=== PATIENT | male | born 1950 | race Two or more races ===

== ENCOUNTER 2018-03-18 07:11 | Emergency (ER) | payer MEDICAID ==
[~2018-03-18] VITALS: Ht 175.3 cm; Wt 77.1 kg
--- NOTE | 2018-03-18 07:15 | NUR ---
BBRA 60 FROM TRAIN STATIONl: CP SINCE THIS AM, 1 NITRO GIVEN, 162 ASA GIVEN. REFUSED 2ND NITRO. A/OX 3. BREATHING EVEN AND UNLABORED. NO SOB, NAD, VITALS STABLE. SAFETY AND COMFORT MEASURES IN PLACE. AWAITING MD ORDERS.
--- NOTE | 2018-03-18 07:30 | NUR ---
NEW IV STARTED ON RFA, 20G. BLOOD DRAWN AND SENT TO LAB.
[2018-03-18 07:43] LABS: BASOPHILS % (AUTO) 0.4 % (0.0-2.0); HEMATOCRIT 34 % (39-51); LYMPHOCYTES # (AUTO) 1.4 /CMM (0.8-4.8); LYMPHOCYTES % (AUTO) 31.3 % (20.0-44.0); MEAN CORPUSCULAR HGB CONC 33 g/dl (31.0-36.0); MEAN CORPUSCULAR VOLUME 93 fL (80-96); MONOCYTES # (AUTO) 0.5 /CMM (0.1-1.30); MONOCYTES % (AUTO) 10.1 % (2.0-12.0); NEUTROPHILS # (AUTO) 2.6 /CMM (1.8-8.9); NEUTROPHILS % (AUTO) 56.2 % (43.0-81.0); PLATELET COUNT (AUTO) 238 /CMM (150-450); RDW COEFFICIENT OF VARIATION 16.3 (11.5-15.0); RED BLOOD CELL COUNT(AUTO) 3.61 MIL/uL (4.5-6.0); WHITE BLOOD COUNT (AUTO) 4.6 K/uL (4.3-11.0)
--- NOTE | 2018-03-18 07:50 | NUR ---
PHONE COUNSELOR AT BEDSIDE.
[2018-03-18 07:53] LABS: CALCIUM, SERUM 9.5 mg/dL (8.5-10.1); CARBON DIOXIDE 29 mmol/L (21-32); CHLORIDE 103 mmol/L (98-107); CREATININE 1.3 mg/dL (0.6-1.3); GLUCOSE 287 mg/dL (74-106); POTASSIUM 4.7 mmol/L (3.5-5.1); SODIUM SERUM 137 mmol/L (136-145); UREA NITROGEN, BLOOD 18 mg/dL (7-18)
[2018-03-18 08:00] LABS: TROPONIN I < 0.017 ng/mL (0.00-0.056)
[2018-03-18 08:01] LABS: INR 1.01 (0.87-1.13)
[2018-03-18 09:24] VITALS: BP 142/84
--- NOTE | 2018-03-18 09:25 | NUR ---
IV removed. Catheter intact and site benign. Pressure and 4x4 applied to site. No bleeding noted. Patient discharged to home in stable condition. Written and verbal after care instructions given. Patient verbalizes understanding of instruction.
== END 2018-03-18 09:24 | disposition home or self-care (01) ==
LOC: ER 07:13
DX: R07.89 Other chest pain (principal); I11.0 Hypertensive heart disease with heart failure; I50.9 Heart failure, unspecified; E11.9 Type 2 diabetes mellitus without complications; F20.9 Schizophrenia, unspecified; F31.9 Bipolar disorder, unspecified; F17.200 Nicotine dependence, unspecified, uncomplicated; Z60.2 Problems related to living alone; Z88.8 Allergy status to other drugs, medicaments and biological substances
CPT/HCPCS: 36415; 71045; 80048; 84484; 85025; 85730; 93005; 99285; A4606; Z7610

== ENCOUNTER 2018-03-18 12:51 | Emergency (ER) | payer SELFPAY ==
[~2018-03-18] VITALS: Ht 185.4 cm; Wt 79.4 kg
--- NOTE | 2018-03-18 13:00 | NUR ---
[id number]: PSYCHE EVAL. NAD NOTED, VSS, RESP EVEN AND UNLABORED, PT WAS PUT ON MONITOR, WAITING FOR MD SHELDON.
[2018-03-18 15:41] LABS: ACETAMINOPHEN 0 ug/ml (10-30); ALCOHOL, BLOOD < 3 mg/dL (0-0); SALICYLATE 1.2 mg/dL (2.8-20.0)
--- NOTE | 2018-03-18 16:46 | NUR ---
urine collected sent to lab
[2018-03-18 17:07] LABS: APPEARANCE,URINE CLEAR (CLEAR); BILIRUBIN,URINE NEGATIVE (NEGATIVE); BLOOD, URINE NEGATIVE Ery/uL (NEGATIVE); COLOR,URINE YELLOW (YELLOW); KETONES,URINE NEGATIVE (NEGATIVE); LEUKOCYTE ESTERASE ,URINE NEGATIVE (NEGATIVE); NITRITE, URINE NEGATIVE (NEGATIVE); PROTEIN,URINE NEGATIVE (NEGATIVE); UGLUCOSE 3+ mg/dL (NEGATIVE); UROBILINOGEN,URINE 0.2 EU/dL (0.2)
--- NOTE | 2018-03-18 17:09 | NUR ---
called kitchen for meal tray
[2018-03-18 17:41] LABS: RBC,URINE 0-2 /HPF (0-2); WBC,URINE 0-2 /HPF (0-3)
[2018-03-18 17:42] LABS: BACTERIA,URINE None seen /HPF (None Seen); SQUAMOUS EPITHELIAL CELL,UR Rare /HPF (None Seen)
[2018-03-18 18:50] VITALS: BP 123/78
--- NOTE | 2018-03-18 18:50 | NUR ---
Patient given written and verbal discharge instructions. Patient verbalizes understanding of instructions. Patient is ambulatory with steady gait. Refuses offer of retirement placement. Patient given list of available shelters in surrounding area.
== END 2018-03-18 20:37 | disposition home or self-care (01) ==
LOC: ER 12:53
DX: F32.9 Major depressive disorder, single episode, unspecified (principal); I11.0 Hypertensive heart disease with heart failure; I50.9 Heart failure, unspecified; F20.9 Schizophrenia, unspecified; F17.200 Nicotine dependence, unspecified, uncomplicated; Z88.8 Allergy status to other drugs, medicaments and biological substances; Z60.2 Problems related to living alone
CPT/HCPCS: 36415; 80305; 80329; 81001; 99284; A4606; G0480 ×2; Z7610; 81000-TC

== ENCOUNTER 2018-05-10 03:26 | Emergency (ER) | payer MEDICAID, MEDICARE ==
[~2018-05-10] VITALS: Ht 188 cm; Wt 79.8 kg
--- NOTE | 2018-05-10 04:58 | NUR ---
BIBRA 60 FROM BUS STOP C/O "NON RADIATING SHARP HEART ATTACK". PT STATES SUICIDAL THOUGHT WITHOUT A PLAN. -HI. + AUDITORY HALLUCINATIONS. PT IS AAOX4. SKIN WNL. RESP EVEN AND UNLABORED. NO S/S OF ACUTE DISTRESS NOTED. SI PRECAUTIONS IN PLACE. PT PLACED ON MANAGER INPATIENT AND POX. PT SAFETY AND COMFORT MEASURES IN PLACE. AWAITING MD FOR EVAL.
--- NOTE | 2018-05-10 05:38 | NUR ---
CIRCULAR KNIFE CUTTER MACHINE BEDSIDE FOR BLOOD DRAW. URINE SPECIMEN COLLECTED BY CIRCULAR KNIFE CUTTER MACHINE.
[2018-05-10 05:52] LABS: HEMATOCRIT 40 % (39-51); LYMPHOCYTES # (AUTO) 0.9 /CMM (0.8-4.8); LYMPHOCYTES % (AUTO) 22.4 % (20.0-44.0); MEAN CORPUSCULAR HEMOGLOBIN 30 PG (26.0-33.0); MEAN CORPUSCULAR HGB CONC 33 g/dl (31.0-36.0); MEAN CORPUSCULAR VOLUME 93 fL (80-96); MONOCYTES # (AUTO) 0.4 /CMM (0.1-1.30); MONOCYTES % (AUTO) 9.4 % (2.0-12.0); NEUTROPHILS # (AUTO) 2.8 /CMM (1.8-8.9); NEUTROPHILS % (AUTO) 66.2 % (43.0-81.0); PLATELET COUNT (AUTO) 218 /CMM (150-450); RDW COEFFICIENT OF VARIATION 16.4 (11.5-15.0); RED BLOOD CELL COUNT(AUTO) 4.28 MIL/uL (4.5-6.0); WHITE BLOOD COUNT (AUTO) 4.2 K/uL (4.3-11.0)
[2018-05-10 06:03] LABS: APPEARANCE,URINE CLEAR (CLEAR); BILIRUBIN,URINE NEGATIVE (NEGATIVE); BLOOD, URINE NEGATIVE Ery/uL (NEGATIVE); COLOR,URINE YELLOW (YELLOW); KETONES,URINE NEGATIVE (NEGATIVE); LEUKOCYTE ESTERASE ,URINE NEGATIVE (NEGATIVE); NITRITE, URINE NEGATIVE (NEGATIVE); PROTEIN,URINE NEGATIVE (NEGATIVE); UGLUCOSE 3+ mg/dL (NEGATIVE); UROBILINOGEN,URINE 0.2 EU/dL (0.2)
[2018-05-10 06:11] LABS: CALCIUM, SERUM 9.1 mg/dL (8.5-10.1); CARBON DIOXIDE 29 mmol/L (21-32); CHLORIDE 101 mmol/L (98-107); CREATININE 1.1 mg/dL (0.6-1.3); GLUCOSE 255 mg/dL (74-106); POTASSIUM 3.7 mmol/L (3.5-5.1); SODIUM SERUM 132 mmol/L (136-145); UREA NITROGEN, BLOOD 15 mg/dL (7-18)
[2018-05-10 06:21] LABS: ALANINE AMINOTRANSFERASE 25 U/L (12-78); ALBUMIN 3.4 g/dL (3.4-5.0); ALCOHOL, BLOOD < 3 mg/dL (0-0); ALKALINE PHOSPHATASE 100 U/L (46-116); ASPARTATE AMINOTRANSFERASE 16 U/L (15-37); BILIRUBIN,DIRECT 0.2 mg/dL (0.0-0.2); BILIRUBIN,TOTAL 0.7 mg/dL (0.2-1.0); TOTAL PROTEIN, SERUM 7.4 g/dL (6.4-8.2)
[2018-05-10 06:22] LABS: BACTERIA,URINE None seen /HPF (None Seen); RBC,URINE NONE SEEN /HPF (0-2); SQUAMOUS EPITHELIAL CELL,UR Rare /HPF (None Seen); WBC,URINE NONE SEEN /HPF (0-3)
[2018-05-10 06:26] LABS: ACETAMINOPHEN 0 ug/ml (10-30); SALICYLATE 0.9 mg/dL (2.8-20.0)
--- NOTE | 2018-05-10 07:01 | NUR ---
Patient discharged to home in stable condition. Written and verbal after care instructions given. Patient verbalizes understanding of instruction. NO S/S OF DISTRESS UPON DISCHARGE. PT BEING BELIGERENT TOWARDS STAFF AND YELLING. HOSPITAL SECURITY CALLED TO ESCORT PT OUT OF ED.
[2018-05-10 07:02] VITALS: BP 132/85
== END 2018-05-10 07:04 | disposition home or self-care (01) ==
LOC: ER 03:28
DX: R07.9 Chest pain, unspecified (principal); I50.9 Heart failure, unspecified; I11.0 Hypertensive heart disease with heart failure; E11.9 Type 2 diabetes mellitus without complications; F31.9 Bipolar disorder, unspecified; F20.9 Schizophrenia, unspecified; F17.200 Nicotine dependence, unspecified, uncomplicated; Z88.0 Allergy status to penicillin; Z88.8 Allergy status to other drugs, medicaments and biological substances; Z60.2 Problems related to living alone
CPT/HCPCS: 36415; 80048-TC; 80076-TC; 80305; 81000-TC; 84484-TC; 85025-TC; A4606; G0480; Z7610

== ENCOUNTER 2018-05-10 14:31 | Inpatient (IN) | payer MEDICARE, MEDICAID ==
[~2018-05-10] VITALS: Ht 188 cm; Wt 80.7 kg
[2018-05-10] MEDS ORDERED: LORAZEPAM INJ 2 MG/ML VIAL ONE (14:59)
[2018-05-10] MEDS ORDERED: LORAZEPAM INJ 2 MG/ML VIAL IM ONE (15:00)
[2018-05-10] MEDS ORDERED: HALOPERIDOL LACTATE INJ 5 MG/ML VIAL IM ONE (15:00)
--- NOTE | 2018-05-10 15:10 | NUR ---
pt rec'd to er in cuffs from [facility] 5[address] touching himself . vss iv [id number] rt ac labs drawn sen t to lab ekg done AWAITING EVALUATION BY ER PROVIDER.
--- NOTE | 2018-05-10 15:20 | NUR ---
iv ativan 2 mg ivp given per md order vss
--- NOTE | 2018-05-10 16:00 | NUR ---
PT ATE MORE RELAX NOT YELLING RESTING CALMLY.
--- NOTE | 2018-05-10 16:01 | NUR ---
RRFUSED TO GIVE UA AT THIS THIME GIVEN POS WATER AND COFFEE, CALLED REPORT TO JULIO ON SCH FLOOR 211B PT STABLE FOR TRANSFER
--- NOTE | 2018-05-10 16:04 | NUR ---
LINDY HELD PER
[2018-05-10] MEDS ORDERED: MAG HYDROX/AL HYDROX/SIMETH 30 ML UDC PO PRN (17:00)
[2018-05-10] MEDS ORDERED: clonazePAM 0.5 MG TABLET PO PRN (17:00)
[2018-05-10] MEDS ORDERED: ACETAMINOPHEN 325 MG TABLET PO PRN (17:00)
[2018-05-10] MEDS ORDERED: MAGNESIUM HYDROXIDE 30 ML UDC PO PRN (17:00)
--- NOTE | 2018-05-10 17:00 | NUR ---
GPS/RN PATIENT ADMITTED ON A 5150 HOLD FOR DTS UNDER THE CARE OF DR PERSAUD AND HOLLY GUERRERO. BOTH DR'S MADE AWARE OF NEW ADMISSION, LEFT MESSAGE WITH [employer], AWAITING CALL BACK FROM HOLLY GUERRERO. NO HOME MEDICATIONS. PER HOLD PATIENT WAS MASTURBATING IN PUBLIC AND WAS VOICING SI WITH PLAN TO OVERDOSE ON PILLS. UPON FACE TO FACE ASSESSMENT PATIENT IS ALERT AND ORIENTED X 3, STABLE CONDITION, VERBALLY RESPONSIVE, MALODOROUS, ANXIOUS, RESTLESS, LABILE AND HYPERSEXUAL.PATIENT DENIES SI/HI/AVH. BELONGINGS, VALUABLES AND CONTRABAND COLLECTED. WILL CONTINUE TO MONITOR Q 15 MIN FOR SAFETY AND BEHAVIOR.
[2018-05-10 19:41] VITALS: BP 143/77
[2018-05-10 19:42] LABS: BASOPHILS # (AUTO) 0.1 /CMM (0.0-0.2); BASOPHILS % (AUTO) 1.4 % (0.0-2.0); EOSINOPHILS % (AUTO) 1.7 % (0.0-6.0); HEMATOCRIT 41 % (39-51); HEMOGLOBIN 13.4 g/dL (13.5-17.5); LYMPHOCYTES # (AUTO) 1.1 /CMM (0.8-4.8); LYMPHOCYTES % (AUTO) 25.8 % (20.0-44.0); MEAN CORPUSCULAR HEMOGLOBIN 30 PG (26.0-33.0); MEAN CORPUSCULAR HGB CONC 33 g/dl (31.0-36.0); MEAN CORPUSCULAR VOLUME 91 fL (80-96); MONOCYTES # (AUTO) 0.4 /CMM (0.1-1.30); MONOCYTES % (AUTO) 9.1 % (2.0-12.0); NEUTROPHILS # (AUTO) 2.7 /CMM (1.8-8.9); PLATELET COUNT (AUTO) 308 /CMM (150-450); RDW COEFFICIENT OF VARIATION 15.2 (11.5-15.0); RED BLOOD CELL COUNT(AUTO) 4.49 MIL/uL (4.5-6.0); WHITE BLOOD COUNT (AUTO) 4.4 K/uL (4.3-11.0)
[2018-05-10 20:11] LABS: THYROID STIMULATING HORMONE 2.107 uIU/mL (0.358-3.74)
[2018-05-10 20:12] LABS: BILIRUBIN,TOTAL 0.6 mg/dL (0.2-1.0); CALCIUM, SERUM 9.3 mg/dL (8.5-10.1); CREATININE 1.3 mg/dL (0.6-1.3); PHOSPHORUS 4.2 mg/dL (2.5-4.9)
[2018-05-10 20:13] LABS: ALBUMIN 3.7 g/dL (3.4-5.0); MAGNESIUM 1.7 mg/dL (1.8-2.4)
[2018-05-11] MEDS: TEMAZEPAM 7.5 MG CAPSULE PO PRN ×2 (02:31→21:24)
[2018-05-11 08:00] VITALS: BP 133/72
[2018-05-11] MEDS: NICOTINE PATCH (14MG) 14 MG PATCH.TD24 TD SCH (09:20)
[2018-05-11] MEDS: clonazePAM 1 MG TABLET PO PRN (09:46)
--- NOTE | 2018-05-11 09:46 | NUR ---
[id number]: GAVE KLONOPIN 1 MG PO DUE TO SEVERE ANXIETY UPON PT REQUEST AND WILL CONTINUE TO MONITOR FOR EFFECTIVENESS OF MEDICATION.
[2018-05-11] MEDS ORDERED: clonazePAM 1 MG TABLET PO PRN (10:00)
--- NOTE | 2018-05-11 11:00 | NUR ---
GPS-N-NOTES: NOTIFIED CAT BREEDER AMEE ABOUT LAB RESULTS ON 05/10/18: WBC= 4.49, HGB= 13.4, RDW COEFF OF KEIRA= 15.2, MAGNESIUM= 1.7. NO NEW ORDERS GIVEN AT THIS TIME.
[2018-05-11] MEDS: OLANZAPINE 5 MG/TAB.RAPDIS PO SCH (11:15)
[2018-05-11] MEDS: DIVALPROEX SODIUM 125 MG CAP.SPRINK PO SCH ×2 (11:16→21:23)
[2018-05-11] MEDS ORDERED: DEXTROSE 50%-WATER 50 ML DISP.SYRIN IV PRN (11:30)
[2018-05-11] MEDS: BLOOD SUGAR DIAGNOSTIC 1 EACH STRIP IN SCH ×4 (12:11→21:36)
[2018-05-11] MEDS: INSULIN REGULAR, HUMAN 100 UNIT/ML 3 ML VIAL SQ PRN ×2 (12:13→21:30)
--- NOTE | 2018-05-11 12:13 | NUR ---
[id number]: BLOOD SUGAR IS 238 MG/DL AND GAVE 4 UNITS OF REGULAR INSULIN
[2018-05-11 16:00] VITALS: BP 146/90
--- NOTE | 2018-05-11 17:12 | NUR ---
[id number]: PT REFUSED BLOOD SUGAR AT THIS TIME
[2018-05-11 20:46] VITALS: BP 123/69
[2018-05-12] MEDS: BLOOD SUGAR DIAGNOSTIC 1 EACH STRIP IN SCH ×4 (07:49→21:26)
[2018-05-12] MEDS: clonazePAM 1 MG TABLET PO PRN ×2 (07:58→19:28)
--- NOTE | 2018-05-12 07:58 | NUR ---
[id number]: GAVE KLONOPIN 1 MG PO DUE TO INCREASED ANXIETY UPON PT REQUEST AND WILL CONTINUE TO MONITOR FOR EFFECTIVENESS OF MEDICATION
[2018-05-12] MEDS: DIVALPROEX SODIUM 125 MG CAP.SPRINK PO SCH ×2 (07:59→21:26)
[2018-05-12] MEDS: OLANZAPINE 5 MG/TAB.RAPDIS PO SCH (07:59)
[2018-05-12] MEDS: NICOTINE PATCH (14MG) 14 MG PATCH.TD24 TD SCH (07:59)
[2018-05-12 08:00] VITALS: BP 112/64
[2018-05-12] MEDS: INSULIN REGULAR, HUMAN 100 UNIT/ML 3 ML VIAL SQ PRN ×2 (08:00→16:44)
--- NOTE | 2018-05-12 08:00 | NUR ---
[id number]-KR-[id number]: BLOOD SUGAR IS 316 MG/DL AND GAVE 8 UNITS OF REGULAR INSULIN
--- NOTE | 2018-05-12 11:10 | NUR ---
[id number]-[id number]: BLOOD SUGAR IS 96 MG/DL AND NO INSULIN REQUIRED AT THIS TIME
[2018-05-12 12:45] LABS: APPEARANCE,URINE CLEAR (CLEAR); BILIRUBIN,URINE NEGATIVE (NEGATIVE); BLOOD, URINE NEGATIVE Ery/uL (NEGATIVE); COLOR,URINE YELLOW (YELLOW); KETONES,URINE NEGATIVE (NEGATIVE); LEUKOCYTE ESTERASE ,URINE NEGATIVE (NEGATIVE); NITRITE, URINE NEGATIVE (NEGATIVE); PH,URINE 6.5 (5.0-8.0); PROTEIN,URINE NEGATIVE (NEGATIVE); UGLUCOSE 1+ mg/dL (NEGATIVE); UROBILINOGEN,URINE 0.2 EU/dL (0.2)
[2018-05-12 13:04] LABS: BACTERIA,URINE None seen /HPF (None Seen); RBC,URINE 0-2 /HPF (0-2); SQUAMOUS EPITHELIAL CELL,UR Rare /HPF (None Seen); WBC,URINE 0-2 /HPF (0-3)
[2018-05-12 16:00] VITALS: BP 127/66
--- NOTE | 2018-05-12 16:44 | NUR ---
IZH-VB-VDECL: BLOOD SUGAR IS 317 MG/DL AND GAVE 8 UNITS OF REGULAR INSULIN
--- NOTE | 2018-05-12 16:44 | NUR ---
[id number]: BLOOD SUGAR IS 317 MG/DL AND GAVE 8 UNITS OF REGULAR INSULIN
--- NOTE | 2018-05-12 17:28 | NUR ---
[id number]: GAVE MILK OF MAGNESIA 30 ML PO DUE TO CONSTIPATION UPON PT REQUEST AND WILL CONTINUE TO MONITOR FOR EFFECTIVENESS OF MEDICATION
[2018-05-12 20:06] VITALS: BP 162/95
[2018-05-12] MEDS: TEMAZEPAM 7.5 MG CAPSULE PO PRN (22:53)
[2018-05-12 23:00] VITALS: BP 139/65
[2018-05-13] MEDS: clonazePAM 1 MG TABLET PO PRN ×4 (03:10→20:56)
[2018-05-13] MEDS: BLOOD SUGAR DIAGNOSTIC 1 EACH STRIP IN SCH ×4 (07:30→21:43)
[2018-05-13 08:00] VITALS: BP 101/56
[2018-05-13] MEDS: DIVALPROEX SODIUM 125 MG CAP.SPRINK PO SCH ×3 (09:32→16:52)
[2018-05-13] MEDS: NICOTINE PATCH (14MG) 14 MG PATCH.TD24 TD SCH (09:33)
[2018-05-13] MEDS: OLANZAPINE 5 MG/TAB.RAPDIS PO SCH (09:33)
[2018-05-13] MEDS: INSULIN REGULAR, HUMAN 100 UNIT/ML 3 ML VIAL SQ PRN ×3 (12:06→21:45)
--- NOTE | 2018-05-13 14:15 | NUR ---
MICHAEL called the pt's brother, Domingo Soriano ([phone]), and talked about the pt's current state and the initial discharge plan. The brother stated that he believes he should remain in the hospital longer.
--- NOTE | 2018-05-13 14:15 | NUR ---
Initial Discharge Plan: Pt stated that he lives at [address] [place] [address] but it has not been verified by anyone. Per pt's brother, he has no idea where the pt lives. Per the pt, he would like to return home upon his discharge. SW will work with the pt and the MD regarding appropriate discharge planning. SW will form a safe and proper discharge.
[2018-05-13 16:00] VITALS: BP 110/58
[2018-05-13 20:02] VITALS: BP 147/88
[2018-05-13] MEDS: TEMAZEPAM 7.5 MG CAPSULE PO PRN (23:21)
[2018-05-14] MEDS: BLOOD SUGAR DIAGNOSTIC 1 EACH STRIP IN SCH ×4 (07:48→21:53)
[2018-05-14 08:00] VITALS: BP 128/78
[2018-05-14] MEDS: DIVALPROEX SODIUM 125 MG CAP.SPRINK PO SCH ×3 (08:38→17:26)
[2018-05-14] MEDS: NICOTINE PATCH (14MG) 14 MG PATCH.TD24 TD SCH ×2 (08:38→09:00)
[2018-05-14] MEDS: OLANZAPINE 5 MG/TAB.RAPDIS PO SCH (08:38)
[2018-05-14] MEDS: clonazePAM 1 MG TABLET PO PRN (08:46)
[2018-05-14] MEDS: INSULIN REGULAR, HUMAN 100 UNIT/ML 3 ML VIAL SQ PRN ×4 (08:50→21:54)
--- NOTE | 2018-05-14 08:50 | NUR ---
GPS/RN-NOTES NOTED PATIENT HYPERVERBAL WITH LOUD VOICE EASILY ANGRY BEHAVIOR, KLONOPIN 1MG P.O GIVEN PRN ORDER. WILL CONT. ON 1:1 MONITORING FOR SAFETY AND BEHAVIOR.
--- NOTE | 2018-05-14 09:50 | NUR ---
GPS/RN-NOTES PATIENT IN THE DAY ROOM ,CALM,NO ACUTE DISTRESS NOTED.
--- NOTE | 2018-05-14 12:05 | NUR ---
GPS/RN-NOTES PATIENT BLOOD SUGAR WAS 364MG /DL, 10 UNITS OF R INSULIN GIVEN ORDERED.
--- NOTE | 2018-05-14 14:57 | NUR ---
MICHAEL called [facility] ([phone]) to verify that the pt was provided with housing and left a message on [employer]'s voicemail.
--- NOTE | 2018-05-14 15:10 | NUR ---
Dr. Armendariz and the SW spoke to the pt and he agreed to be placed in a fdc if [facility] does not set up housing for him.
[2018-05-14 16:00] VITALS: BP 126/69
[2018-05-14 20:00] VITALS: BP 124/71
[2018-05-14 20:15] VITALS: BP 124/71
[2018-05-14] MEDS: TEMAZEPAM 7.5 MG CAPSULE PO PRN (21:52)
[2018-05-15 08:00] VITALS: BP 140/86
[2018-05-15] MEDS: BLOOD SUGAR DIAGNOSTIC 1 EACH STRIP IN SCH ×4 (08:15→20:41)
[2018-05-15] MEDS: DIVALPROEX SODIUM 125 MG CAP.SPRINK PO SCH ×3 (08:20→17:00)
[2018-05-15] MEDS: clonazePAM 1 MG TABLET PO PRN ×2 (08:21→20:40)
[2018-05-15] MEDS: NICOTINE PATCH (14MG) 14 MG PATCH.TD24 TD SCH (08:21)
[2018-05-15] MEDS: INSULIN REGULAR, HUMAN 100 UNIT/ML 3 ML VIAL SQ PRN ×3 (08:31→20:43)
[2018-05-15] MEDS ORDERED: OLANZAPINE 5 MG/TAB.RAPDIS PO SCH (09:00)
--- NOTE | 2018-05-15 14:17 | NUR ---
MICHAEL faxed a referral to [facility] to the fax number: [phone].
--- NOTE | 2018-05-15 14:17 | NUR ---
MICHAEL faxed a referral to [facility] to the fax number: [phone].
--- NOTE | 2018-05-15 14:34 | NUR ---
Pt. is highly agitated, aggressive, screaming, yelling and threatening the staff. Notified Dr. Armendariz and ordered Zyprexa 5 mg IM x1 and Ativan 1 mg IM x1.
[2018-05-15] MEDS ORDERED: LORAZEPAM INJ 2 MG/ML VIAL IM ONE (15:00)
[2018-05-15] MEDS ORDERED: OLANZAPINE 10 MG VIAL IM ONE ×2 (15:00)
[2018-05-15 16:00] VITALS: BP 133/69
[2018-05-15] MEDS: OLANZAPINE 5 MG/TAB.RAPDIS PO SCH (17:00)
--- NOTE | 2018-05-15 18:00 | NUR ---
RN NOTES PATIENT SLEEPING AT THIS TIME, UNABLE TO ADMINISTER SCHEDULED MEDICATION, AND TAKE BLOOD GLUCOSE LEVEL. 1:1 SITTER NEXT TO THE BED. FOR SAFETY.
[2018-05-15 20:00] VITALS: BP 152/73
--- NOTE | 2018-05-15 21:24 | NUR ---
GPS RN NOTE: PATIENT WROTE A LETTER FOR THE SITTER OF SEXUAL INTENTION. REDIRECT THE PATIENT. LIMIT SETTINGS DONE. CLOSE MONITORING DONE. CN NOTIFIED. WILL CONTINUE TO MONITOR [id number] FOR SAFETY
--- NOTE | 2018-05-16 03:30 | NUR ---
GPS RN NOTE: HEARD SOUND CAME FROM ROOM, IMMEDIATELY RUSHED TO THE ROOM OF THE PATIENT AND SEEN THE PATIENT SITTING ON THE FLOOR. PATIENT STOOD UP, AFTER FEW STEPS, HE OUT HIS BALANCE AND LANDED ON THE BED. C/O MILD PAIN ON HIS LEFT HUMERUS. PATIENT STATED THAT HE FRACTURED HIS LEFT HUMERUS 10 WEEKS AGO PRIOR TO ADMISSION TO [facility] AND HE CAN NOT MOVE IT. HEAD TO TOE ASSESSMENT DONE. NO REDNESS, NO SWELLING OR DISCOLORATION NOTED AT THIS TIME. AND ALSO PATIENT NOTED WITH SMALL BUMP ON HIS LEFT FOREHEAD. NO OPEN SKIN. FIRST AID DONE. ICE PACK APPLIED. IMMOBILIZE THE LEFT ARM. TYLENOL 650 MG GIVEN FOR MILD PAIN. NEURO CHECK DONE. PERRLA. NO APPARENT INJURY NOTED AT THIS TIME. EXTREMITIES ABLE TO MOVE FREELY WITHOUT ANY S/S OF PAIN AND DISCOMFORT. OBSERVED PATIENT AND PATIENT CAN STILL MOVE HIS LEFT ARM WITH NO FACIAL GRIMACING OR ANY S/S OF PAIN AND DISCOMFORT. ABLE TO ASSIST THE PATIENT BACK TO BED WITH 1 PERSON ASSIST. CN AWARE. NOTIFIED WAREHOUSE SORTER MARSHAL CALVIN WITH ORDER XRAY ORDER GIVEN NOTED AND CARRIED OUT. WILL CONTINUE TO MONITOR Addendum: 05/16/18 at 0706 by JULI KOHLI II, RN PER PATIENT, HE STOOD UP, AFTER FEW STEPS, HE OUT HIS BALANCE AND LANDED ON THE BED.
--- NOTE | 2018-05-16 03:50 | NUR ---
GPS RN NOTE: RN SCIENTIFIC PROCESS OPERATOR NOTIFIED BY THE CHARGE NURSE REGARDING THE INCIDENT
--- NOTE | 2018-05-16 04:00 | NUR ---
GPS RN NOTE: PATIENT CALM, COOPERATIVE, NO S/S OF PAIN AND DISCOMFORT, X RAY DONE AND PATIENT COOPERATED. WILL CONTINUE TO MONITOR
--- NOTE | 2018-05-16 05:20 | NUR ---
GPS RN NOTE: RESULT OF XRAY RELAYED TO HOLLY CALVIN. PER MARIXA IT SOUND LIKE AN OLD FRACTURE AND JUST PLACE A SLING NOTED AND CARRIED OUT.
--- NOTE | 2018-05-16 06:15 | NUR ---
GPS RN NOTE: PATIENT WOKE UP, ALERT AND ORIENTED X 3, CALM, COOPERATIVE, NO AGITATION AT THIS TIME. SLING APPLIED AND COOPERATED. ON 1:1 FOR SAFETY. WILL CONTINUE TO MONITOR [id number] FOR SAFETY
[2018-05-16] MEDS: BLOOD SUGAR DIAGNOSTIC 1 EACH STRIP IN SCH ×4 (07:30→20:42)
--- NOTE | 2018-05-16 07:55 | NUR ---
rn notes pt in the activity room having breakfast. alert and oriented; no c/o pain made. left arm sling in place; skin and circulation wnl. sitter on standby. safety ensured. rohith monitor
[2018-05-16 08:00] VITALS: BP 139/77
--- NOTE | 2018-05-16 08:09 | NUR ---
DR. OH MADE AWARE OF THE INCIDENT.
[2018-05-16] MEDS: OLANZAPINE 5 MG/TAB.RAPDIS PO SCH ×2 (08:53→17:18)
[2018-05-16] MEDS: NICOTINE PATCH (14MG) 14 MG PATCH.TD24 TD SCH (08:53)
[2018-05-16] MEDS: DIVALPROEX SODIUM 125 MG CAP.SPRINK PO SCH ×2 (08:53→17:18)
[2018-05-16] MEDS: INSULIN REGULAR, HUMAN 100 UNIT/ML 3 ML VIAL SQ PRN ×4 (09:00→20:43)
[2018-05-16] MEDS: METFORMIN 500 MG TABLET PO SCH ×2 (11:34→17:18)
[2018-05-16] MEDS: clonazePAM 1 MG TABLET PO PRN (11:34)
[2018-05-16 16:00] VITALS: BP 116/71
[2018-05-16 20:00] VITALS: BP 142/97
--- NOTE | 2018-05-16 20:44 | NUR ---
GPS RN NOTE: PATIENT REQUESTED TO HAVE BLOOD SUGAR CHECKED NOW BECAUSE HE WANTS TO EAT. EXPLAINED THE RISK AND BENEFITS BUT PATIENT INSISTED. BLOOD SUGAR = 224, ORDERED SLIDING SCALE GIVEN ORDERED. WILL CONTINUE TO MONITOR [id number] FOR SAFETY
[2018-05-16] MEDS: TEMAZEPAM 7.5 MG CAPSULE PO PRN (22:01)
[2018-05-17] MEDS: BLOOD SUGAR DIAGNOSTIC 1 EACH STRIP IN SCH ×4 (07:40→22:11)
[2018-05-17] MEDS: INSULIN REGULAR, HUMAN 100 UNIT/ML 3 ML VIAL SQ PRN ×4 (07:42→22:29)
--- NOTE | 2018-05-17 07:59 | NUR ---
GPS/RN PT REFUSED BLOOD DRAW OFFERED X3
[2018-05-17 08:00] VITALS: BP 130/90
[2018-05-17] MEDS: NICOTINE PATCH (14MG) 14 MG PATCH.TD24 TD SCH ×2 (09:00→09:18)
[2018-05-17] MEDS: METFORMIN 500 MG TABLET PO SCH ×2 (09:18→17:39)
[2018-05-17] MEDS: OLANZAPINE 5 MG/TAB.RAPDIS PO SCH ×2 (09:18→17:39)
[2018-05-17] MEDS: DIVALPROEX SODIUM 125 MG CAP.SPRINK PO SCH ×2 (09:18→17:39)
[2018-05-17] MEDS: clonazePAM 1 MG TABLET PO PRN (09:18)
--- NOTE | 2018-05-17 10:19 | NUR ---
PT REFUSED LAB DRAW
[2018-05-17 16:00] VITALS: BP 126/88
--- NOTE | 2018-05-17 19:20 | NUR ---
GPS RN OPENING NOTE RECEIVED PATIENT SITTING IN THE DINNING ROOM, QUIET 2 THIS TIME. NO ACUTE CHANGES, NO C/O PAIN, NO SOB NOTED. ON 1:1 SITTER OBSERVATION FOR SAFETY. WILL CONTINUE TO MONITOR CLOSELY FOR SAFETY & COMFORT.
[2018-05-17 19:56] VITALS: BP 115/63
[2018-05-17 20:00] VITALS: BP 115/68
--- NOTE | 2018-05-17 20:03 | NUR ---
GPS RN NOTE: PATIENT REQUESTED TO HAVE BLOOD SUGAR CHECKED NOW BECAUSE HE WANTS TO EAT. EXPLAINED THE RISK AND BENEFITS BUT PATIENT INSISTED. BLOOD SUGAR = 186MG/DL, LAST INSULIN DOSE WAS GIVE @ 1647. WILL RECHECK AGAIN SCHEDULED @ 2200. CONTINUING TO MONITOR ON 1:1 SITTER OBSERVATION FOR SAFETY
--- NOTE | 2018-05-17 21:00 | NUR ---
SEEN BY DR OVALLE PATIENT SEEN BY DR. OVALLE WITH NO NEW ORDER AT THIS TIME. PT IS ON 1:1 OBSERVATION, SITTING IN THE DINNING ROOM EATING HIS SNACK.
--- NOTE | 2018-05-17 22:29 | NUR ---
PRN INSULIN GIVEN PT'S BLOOD SUGAR WAS CHECKED & NOTED TO BE 236MG/DL. PRN INSULIN 4 UNITS GIVEN ORDERED PER ISS PROTOCOL. CONTINUING TO MONITOR CLOSELY.
[2018-05-17] MEDS: TEMAZEPAM 7.5 MG CAPSULE PO PRN (23:07)
--- NOTE | 2018-05-17 23:07 | NUR ---
PRN RESTORIL GIVEN PT IS IN HIS BED, WRITING ON A PAPER, ASKED TO GET HIS SLEEPING PILL. PRN RESTORIL GIVEN. WILL REASSESS FOR EFFECTIVENESS ACCORDINGLY.
--- NOTE | 2018-05-18 06:30 | NUR ---
GPS RN CLOSING NOTES PT NOTED TO BE SLEEPING @ THIS TIME, SLEPT INTERMITTENTLY @ NIGHT. HAD SNACKS & FLUIDS TOLERATED. NO ANALI NOTED. NOTED TO BE CONFUSED, NEEDS CONSTANT REORIENTATION. PT DENIED SUICIDAL IDEATIONS AT NIGHT. ALL NEEDS MET. HAD SHOWER X 1 @ NIGHT. BED IN LOW LOCKED POSITION. ON 1:1 OBSERVATION. SAFETY MEASURES IN PLACE. WILL ENDORSE TO AM RN FOR CONTINUITY OF CARE.
[2018-05-18 08:00] VITALS: BP 145/85
--- NOTE | 2018-05-18 08:00 | NUR ---
GPS/RN BS 258, 6 UNITS REGULAR INSULIN ADMINISTERED.WILL CONTINUE TO MONITOR.
[2018-05-18] MEDS: INSULIN REGULAR, HUMAN 100 UNIT/ML 3 ML VIAL SQ PRN ×3 (08:30→22:20)
[2018-05-18] MEDS: DIVALPROEX SODIUM 125 MG CAP.SPRINK PO SCH ×2 (08:32→17:10)
[2018-05-18] MEDS: OLANZAPINE 5 MG/TAB.RAPDIS PO SCH (08:32)
[2018-05-18] MEDS: clonazePAM 1 MG TABLET PO PRN (08:32)
[2018-05-18] MEDS: NICOTINE PATCH (14MG) 14 MG PATCH.TD24 TD SCH (08:32)
[2018-05-18] MEDS: METFORMIN 500 MG TABLET PO SCH ×2 (08:32→17:10)
--- NOTE | 2018-05-18 08:32 | NUR ---
GPS/RN PATIENT IS ANXIOUS, AGITATED, SCREAMING ST STAFF AND BEING VERBALLY AGGRESSIVE. ADMINISTERED KLONOPIN 1MG, WILL CONTINUE TO MONITOR.
[2018-05-18] MEDS: BLOOD SUGAR DIAGNOSTIC 1 EACH STRIP IN SCH ×4 (09:05→21:58)
--- NOTE | 2018-05-18 11:06 | NUR ---
Jase ([phone]) from [facility] arrived at the facility to assess the pt and stated that he is cleared to be discharged to the facility.
--- NOTE | 2018-05-18 11:09 | NUR ---
SW called [facility] ([phone]) and asked to be redirected to the admissions department where she had to leave a voicemail regarding the referral that was sent on Friday.
--- NOTE | 2018-05-18 11:35 | NUR ---
SW called [facility] ([phone]) and Jes from Admissions stated that the pt was not accepted due his psych needs.
--- NOTE | 2018-05-18 12:30 | NUR ---
GPS/RN BS 151 ,2 UNITS REGULAR INSULIN ADMINISTERED.WILL CONTINUE TO MONITOR.
[2018-05-18 16:00] VITALS: BP 137/95
--- NOTE | 2018-05-18 18:34 | NUR ---
GPS/RN PATIENT REUSED BS CHECK X 3, EXPLAINED RISKS AND BENEFITS. WILL CONTINUE TO ENCOURAGE TO COMPLY WITH MD REGIMEN
[2018-05-18 20:56] VITALS: BP 139/69
[2018-05-18] MEDS: TEMAZEPAM 7.5 MG CAPSULE PO PRN (22:47)
[2018-05-19 08:00] VITALS: BP 132/62
[2018-05-19] MEDS: INSULIN REGULAR, HUMAN 100 UNIT/ML 3 ML VIAL SQ PRN (08:36)
[2018-05-19] MEDS: DIVALPROEX SODIUM 125 MG CAP.SPRINK PO SCH (08:37)
[2018-05-19] MEDS: METFORMIN 500 MG TABLET PO SCH (08:37)
[2018-05-19] MEDS: NICOTINE PATCH (14MG) 14 MG PATCH.TD24 TD SCH (08:37)
[2018-05-19] MEDS: clonazePAM 1 MG TABLET PO PRN (08:37)
[2018-05-19] MEDS: BLOOD SUGAR DIAGNOSTIC 1 EACH STRIP IN SCH (08:38)
[2018-05-19] MEDS ORDERED: OLANZAPINE 5 MG/TAB.RAPDIS PO SCH (09:00)
--- NOTE | 2018-05-19 09:21 | NUR ---
MICHAEL called the pt's brother, Domingo Soriano ([phone]), and informed him that the pt is going to a facility called [facility].
--- NOTE | 2018-05-19 13:00 | NUR ---
GPS/RN PATIENT CLEARED FOR DISCHARGE TO [facility] BY DR PERSAUD AND SPRING UPHOLSTERER CESAR. MEDICATIONS RECONCILED BY BOTH DR'S EXIT CARE, MEDICATIONS AND AFTER CARE PLAN EXPLAINED TO PATIENT, VERBALIZED UNDERSTANDING. BELONGINGS AND VALUABLES RETURNED, PATIENT DENIES SI/HI/AVH, PSYCHIATRIC TREATMENT PLANS MET. REPORT CALLED TO ROSALBA AT FACILITY, SKIN INTACT, LEFT UNIT CALM, COOPERATIVE, NO DISTRESS NOTED,STABLE CONDITION WITH AMBULANCE TRANSPORT AT SIDE.
--- NOTE | 2018-05-19 13:13 | NUR ---
Discharge Note: Pt was discharged to [facility] located at [address] [place] [address]; ([phone]). Pt was transported via [facility] (Trip #[id number]) at 12PM. SW contacted the pts brother, Domingo Soriano ([phone]), and informed him of the discharge. Upon the discharge, the pt appeared to be excited and stated that he wanted to be placed somewhere that is not this location. Pt was provided with two smoking cessation referrals upon discharge. The pt will be under the care of psychiatrist, Dr. Resendiz, located at [address], [place] [address]; and stator tester, Dr. Kidd, located at [address] [place] [address]; . Smoking cessation referrals: [facility] [facility] 800-LUNGUSA [employer] [facility] [phone]
== END 2018-05-19 14:14 | DRG 885 ==
LOC: ER 14:32 → GPS 15:59
PROVIDERS: ADMIT Psychiatry & Neurology Psychiatry; ATTEND Psychiatry & Neurology Psychiatry
DX: F25.9 Schizoaffective disorder, unspecified (principal); I11.0 Hypertensive heart disease with heart failure; E11.65 Type 2 diabetes mellitus with hyperglycemia; R45.851 Suicidal ideations; S42.202A Unspecified fracture of upper end of left humerus, initial encounter for closed fracture; E11.9 Type 2 diabetes mellitus without complications; I50.9 Heart failure, unspecified; Z88.0 Allergy status to penicillin; Z88.8 Allergy status to other drugs, medicaments and biological substances; F29 Unspecified psychosis not due to a substance or known physiological condition; R07.89 Other chest pain; Z72.0 Tobacco use; W19.XXXA Unspecified fall, initial encounter; Y92.9 Unspecified place or not applicable; Z59.0 Homelessness
CPT/HCPCS: 36415; 73060-TC; 80053-TC; 80061-TC; 81000-TC; 82962-TC; 83735-TC; 84100-TC; 84443-TC; 84484-TC; 85025-TC; 87081-TC; A4606; J1815; J2060; J3490; Z7610

== ENCOUNTER 2018-11-01 04:29 | Emergency (ER) | payer MEDICAID, MEDICARE ==
[~2018-11-01] VITALS: Ht 188 cm; Wt 76.2 kg
[2018-11-01 07:29] LABS: HEMATOCRIT 39 % (39-51); HEMOGLOBIN 12.8 g/dL (13.5-17.5); MEAN CORPUSCULAR HGB CONC 33 g/dl (31.0-36.0); MEAN CORPUSCULAR VOLUME 95 fL (80-96); NEUTROPHILS % (AUTO) 81.9 % (43.0-81.0); PLATELET COUNT (AUTO) 259 /CMM (150-450); RED BLOOD CELL COUNT(AUTO) 4.11 MIL/uL (4.5-6.0); WHITE BLOOD COUNT (AUTO) 8.7 K/uL (4.3-11.0)
[2018-11-01 07:30] LABS: BASOPHILS % (AUTO) 0.4 % (0.0-2.0); EOSINOPHILS % (AUTO) 0.2 % (0.0-6.0); LYMPHOCYTES # (AUTO) 1.1 /CMM (0.8-4.8); LYMPHOCYTES % (AUTO) 13.2 % (20.0-44.0); MONOCYTES # (AUTO) 0.4 /CMM (0.1-1.30); MONOCYTES % (AUTO) 4.3 % (2.0-12.0); NEUTROPHILS # (AUTO) 7.1 /CMM (1.8-8.9)
[2018-11-01 07:38] LABS: CALCIUM, SERUM 9.6 mg/dL (8.5-10.1); CARBON DIOXIDE 25 mmol/L (21-32); CHLORIDE 104 mmol/L (98-107); CREATININE 1.2 mg/dL (0.6-1.3); GLUCOSE 157 mg/dL (74-106); POTASSIUM 3.8 mmol/L (3.5-5.1); SODIUM SERUM 139 mmol/L (136-145); UREA NITROGEN, BLOOD 17 mg/dL (7-18)
[2018-11-01 07:46] LABS: ALANINE AMINOTRANSFERASE 29 U/L (12-78); ALBUMIN 3.9 g/dL (3.4-5.0); ALCOHOL, BLOOD < 3 mg/dL (0-0); ALKALINE PHOSPHATASE 82 U/L (46-116); ASPARTATE AMINOTRANSFERASE 36 U/L (15-37); BILIRUBIN,DIRECT 0.2 mg/dL (0.0-0.2); BILIRUBIN,TOTAL 0.7 mg/dL (0.2-1.0); SALICYLATE 2.9 mg/dL (2.8-20.0); TOTAL PROTEIN, SERUM 8.6 g/dL (6.4-8.2)
[2018-11-01 07:47] LABS: ACETAMINOPHEN 0 ug/ml (10-30)
--- NOTE | 2018-11-01 09:15 | NUR ---
pt ambulatory w/ steady gait. all needs provided. stable vitals. will cont to monitor.
[2018-11-01 09:19] LABS: APPEARANCE,URINE CLEAR (CLEAR); BILIRUBIN,URINE NEGATIVE (NEGATIVE); BLOOD, URINE NEGATIVE Ery/uL (NEGATIVE); COLOR,URINE YELLOW (YELLOW); KETONES,URINE NEGATIVE (NEGATIVE); LEUKOCYTE ESTERASE ,URINE NEGATIVE (NEGATIVE); NITRITE, URINE NEGATIVE (NEGATIVE); PROTEIN,URINE 1+ mg/dl (NEGATIVE); UGLUCOSE NEGATIVE (NEGATIVE); UROBILINOGEN,URINE 0.2 EU/dL (0.2)
--- NOTE | 2018-11-01 09:49 | NUR ---
PAGED TAWNYA RAY RN FOR PSYCH EVAL ETA [phone].
--- NOTE | 2018-11-01 10:51 | NUR ---
brandie rn at bedside for psych eval.
[2018-11-01 12:20] VITALS: BP 152/87
--- NOTE | 2018-11-01 12:20 | NUR ---
pt resting in bed. provided w/ meal tray. stable vitals.
--- NOTE | 2018-11-01 13:59 | NUR ---
report given to sandi ledezma at [facility]. awaiting transfer ambulance.
--- NOTE | 2018-11-01 14:15 | NUR ---
CALLED TRANSPORT WITH ETA OF 1500 TRIP NUMBER [id number] [facility]
--- NOTE | 2018-11-01 15:36 | NUR ---
transfered to [facility]. stable condition.
== END 2018-11-01 15:40 ==
LOC: ER 04:34
DX: R45.851 Suicidal ideations (principal); I11.0 Hypertensive heart disease with heart failure; I50.9 Heart failure, unspecified; E11.9 Type 2 diabetes mellitus without complications; F20.9 Schizophrenia, unspecified; F31.9 Bipolar disorder, unspecified; F17.200 Nicotine dependence, unspecified, uncomplicated; F12.10 Cannabis abuse, uncomplicated; Z88.0 Allergy status to penicillin; Z60.2 Problems related to living alone; Z88.8 Allergy status to other drugs, medicaments and biological substances
CPT/HCPCS: 36415; 80048-TC; 80076-TC; 80305; 81000-TC; 85025-TC; G0480

== ENCOUNTER 2020-07-23 05:58 | Emergency (ER) | payer MEDICAID, MEDICARE ==
[~2020-07-23] VITALS: Ht 188 cm; Wt 80.7 kg
--- NOTE | 2020-07-23 06:11 | NUR ---
PT [id number] C/O GROIN AND BACK PAIN S/P TRIP AND FALL FELT HAT POUNCING OPERATOR HAND. PT AAOX4, VSS, RESPIRATIONS EVEN AND UNLABORED ON RA W/ NAD NOTED. PT CONNECTED TO THE MONITOR AND POX
--- NOTE | 2020-07-23 06:29 | NUR ---
XRAY AT BEDSIDE
--- NOTE | 2020-07-23 07:40 | NUR ---
Patient given written and verbal discharge instructions. Patient verbalizes understanding of instructions. Patient is ambulatory with steady gait. Refuses offer of fpc placement. Patient given list of available shelters in surrounding area. Name band removed, all belongings returned, in proper clothing upon discharge.
--- NOTE | 2020-07-23 07:48 | NUR ---
patient provided w pants.
[2020-07-23 08:36] VITALS: BP 151/97
== END 2020-07-23 07:52 | disposition home or self-care (01) ==
LOC: ER 06:05
DX: S30.0XXA Contusion of lower back and pelvis, initial encounter (principal); I11.0 Hypertensive heart disease with heart failure; I50.9 Heart failure, unspecified; E11.9 Type 2 diabetes mellitus without complications; F20.9 Schizophrenia, unspecified; F31.9 Bipolar disorder, unspecified; F17.200 Nicotine dependence, unspecified, uncomplicated; Z88.0 Allergy status to penicillin; Z88.8 Allergy status to other drugs, medicaments and biological substances; Z60.2 Problems related to living alone; W01.0XXA Fall on same level from slipping, tripping and stumbling without subsequent striking against object, initial encounter; Y93.89 Activity, other specified; Y92.89 Other specified places as the place of occurrence of the external cause; Y99.8 Other external cause status
CPT/HCPCS: 72110-TC